=== PATIENT | female | born 2000 ===

== ENCOUNTER → 2023-03-28 09:41 | Outpatient (BNVA) | payer BC, MEDICAID, SELFPAY | PROVIDERS: Visit Provider Nurse Practitioner Women's Health | DX: K21.9 Gastro-esophageal reflux disease without esophagitis; O99.210 Obesity complicating pregnancy, unspecified trimester | CPT/HCPCS: 81000 ==

== ENCOUNTER → 2023-04-17 10:29 | Outpatient (BNVA) | payer BC, MEDICAID, SELFPAY | PROVIDERS: Visit Provider Obstetrics & Gynecology | DX: Z34.90 Encounter for supervision of normal pregnancy, unspecified, unspecified trimester (principal); Z3A.09 9 weeks gestation of pregnancy | CPT/HCPCS: 76801 ==

== ENCOUNTER → 2023-04-27 15:23 | Outpatient (BNVA) | payer BC, MEDICAID, SELFPAY | PROVIDERS: Visit Provider Obstetrics & Gynecology | DX: Z34.80 Encounter for supervision of other normal pregnancy, unspecified trimester (principal); Z3A.00 Weeks of gestation of pregnancy not specified | CPT/HCPCS: 80307; 84315; 85025; 86592; 86762; 86803; 86850; 86900; 87086; 87340 ==

== ENCOUNTER → 2023-05-07 14:26 | Outpatient (BNVA) | payer BC, MEDICAID, SELFPAY | PROVIDERS: Visit Provider Obstetrics & Gynecology | DX: Z34.80 Encounter for supervision of other normal pregnancy, unspecified trimester (principal); Z3A.00 Weeks of gestation of pregnancy not specified | CPT/HCPCS: 81000; 87491; 87591; 88175 ==

== ENCOUNTER → 2023-05-23 13:00 | Outpatient (BNVA) | payer BC, MEDICAID, SELFPAY | PROVIDERS: Visit Provider Obstetrics & Gynecology | DX: Z34.80 Encounter for supervision of other normal pregnancy, unspecified trimester (principal); Z3A.00 Weeks of gestation of pregnancy not specified | CPT/HCPCS: 87806 ==

== ENCOUNTER → 2023-06-06 13:25 | Outpatient (BNVA) | payer BC, MEDICAID, SELFPAY | PROVIDERS: Visit Provider Nurse Practitioner Women's Health | DX: Z34.80 Encounter for supervision of other normal pregnancy, unspecified trimester (principal); Z3A.00 Weeks of gestation of pregnancy not specified; L65.9 Nonscarring hair loss, unspecified | CPT/HCPCS: 81000; 84443 ==

== ENCOUNTER → 2023-07-04 14:22 | Outpatient (BNVA) | payer BC, MEDICAID, SELFPAY | PROVIDERS: Visit Provider Nurse Practitioner Women's Health | DX: Z34.92 Encounter for supervision of normal pregnancy, unspecified, second trimester (principal); Z3A.21 21 weeks gestation of pregnancy | CPT/HCPCS: 76805 ==

== ENCOUNTER → 2023-08-01 12:33 | Outpatient (BNVA) | payer BC, MEDICAID, SELFPAY | PROVIDERS: Visit Provider Obstetrics & Gynecology | DX: Z34.92 Encounter for supervision of normal pregnancy, unspecified, second trimester (principal); Z3A.25 25 weeks gestation of pregnancy | CPT/HCPCS: 76816; 82950; 84315; 88175 ==

== ENCOUNTER → 2023-08-27 08:11 | Outpatient (BNVA) | payer BC, MEDICAID, SELFPAY | PROVIDERS: Visit Provider Obstetrics & Gynecology | DX: Z34.80 Encounter for supervision of other normal pregnancy, unspecified trimester (principal); Z3A.00 Weeks of gestation of pregnancy not specified | CPT/HCPCS: 84315; 85025 ==

== ENCOUNTER 2023-09-25 08:53 | Outpatient (CLI) | payer BC, MEDICAID, SELFPAY ==
[2023-09-25 09:00] VITALS: BMI 24.4
[2023-09-25 09:08] VITALS: BP 138/75; PULSE 103
[2023-09-25 09:26] VITALS: BP 121/75; PULSE 94
[2023-09-25 09:41] VITALS: BP 124/79; PULSE 97
[2023-09-25 09:54] LABS: Actim Prom Negative
[2023-09-25 09:56] VITALS: BP 121/77; PULSE 90
[2023-09-25 10:11] VITALS: BP 118/77; PULSE 92
[2023-09-25 10:20] VITALS: BP 118/77; PULSE 92
== END 2023-09-25 10:20 | disposition home or self-care (01) ==
LOC: OPOB 09:04 → OBGYN 09:05
PROVIDERS: Visit Provider Obstetrics & Gynecology
DX: O26.899 Other specified pregnancy related conditions, unspecified trimester (principal); Z3A.00 Weeks of gestation of pregnancy not specified
CPT/HCPCS: 59025; 84112; 99211

== ENCOUNTER → 2023-10-22 09:52 | Outpatient (BNVA) | payer BC, MEDICAID, SELFPAY | PROVIDERS: Visit Provider Obstetrics & Gynecology | DX: Z34.80 Encounter for supervision of other normal pregnancy, unspecified trimester (principal) | CPT/HCPCS: 84315; 87081 ==

== ENCOUNTER → 2023-10-25 14:13 | Outpatient (BNVA) | payer BC, MEDICAID, SELFPAY | PROVIDERS: Visit Provider Obstetrics & Gynecology | DX: O26.13 Low weight gain in pregnancy, third trimester (principal); Z3A.00 Weeks of gestation of pregnancy not specified | CPT/HCPCS: 76816 ==

== ENCOUNTER → 2023-11-19 12:37 | Outpatient (BNVA) | payer BC, MEDICAID, SELFPAY | PROVIDERS: Visit Provider Obstetrics & Gynecology | DX: Z34.80 Encounter for supervision of other normal pregnancy, unspecified trimester (principal); Z3A.00 Weeks of gestation of pregnancy not specified | CPT/HCPCS: 76819; 84315 ==

== ENCOUNTER 2023-11-20 00:04 | Inpatient (IN) | payer BC, MEDICAID, SELFPAY ==
[2023-11-19] VITALS (17 sets, daily range): BP systolic 130–149; BP diastolic 75–99; PULSE 82–100; RESP 22; TEMP 36.9; BMI 44.1
[2023-11-19 19:37] LABS: Basophils % 0.4 %; Eosinophils % 0.4 %; Hematocrit 33.4 % (36-47); Lymphocytes # 1.9 10^3/uL (0.8-4.8); Lymphocytes % 16.7 %; Mean Corpuscular Hemoglobin 27.3 pg (27-33); Mean Corpuscular Volume 85.2 fl (85-98); Mean Platelet Volume 14.2 fL (7.4-10.4); Monocytes # 0.7 10^3/uL (0.2-0.9); Neutrophils # 8.55 10^3/uL (1.8-7.7); Nucleated Red Blood Cells % 0 %; Platelet Count 151 10^3/cmm (157-399); Red Blood Count 3.92 10^6/uL (3.85-5.65); Red Cell Distribution Width 14.2 % (12.1-15.1); White Blood Count 11.25 10^3/uL (3.29-11.43)
[2023-11-19 19:53] LABS: Alanine Aminotransferase 11 U/L (0-33); Albumin Level 3.5 g/dL (3.5-5.2); Alkaline Phosphatase 207 U/L (35-105); Aspartate Amino Transferase 18 U/L (0-32); Blood Urea Nitrogen 10 mg/dL (6-20); Calcium 8.3 mg/dL (8.5-10.5); Carbon Dioxide 17 mmol/L (22-29); Chloride 103 mmol/L (98-107); Glomerular Filtration Rate 150.3 mL/min (90-130); Glucose 82 mg/dL (65-115); Osmolality Calculated 274 mOsm/kg (285-295); Sodium 133 mmol/L (136-145); Total Bilirubin 0.2 mg/dL (0.15-1.2); Total Protein 6.5 g/dL (6.6-8.7); Uric Acid 7.1 mg/dL (2.4-5.7)
[2023-11-19 20:03] LABS: Urine Creatinine 53 mg/dL (28-217)
[2023-11-19 20:04] LABS: UPRO/UCREAT Ratio 1.57 mg/mg CR; Urine Protein Random 83 mg/dL
[2023-11-19 20:13] LABS: Urine Color Yellow (Yellow)
[2023-11-19 20:14] LABS: Add Urine Microscopic? YES; Bacteria Urine 1+ /hpf; Bilirubin Urine Neg (Negative); Blood Urine Neg (Negative); Glucose Urine UA Norm (Normal); Ketones Urine Negative (Negative); Leukocyte Esterase Urine Negative (Negative); Nitrate Urine Negative (Negative); Protein Urine 1+ (Negative); Specific Gravity, Urine 1.005 (1.005-1.030); Squamous Epithelial Cell Urine 0-4 /hpf (0-5); Urine Appearance Clear (CLEAR); Urobilinogen Urine Norm (Negative); pH Urine 7 (5-7)
[2023-11-19 20:15] LABS: Add Urine Culture? No; RBC Urine 0-4 /hpf (0-2)
[2023-11-19] MEDS: dextrose 5%-lactated ringers 1,000 ML 75 ML IV (20:50)
[2023-11-19] MEDS: magnesium sulfate premix 4 GM/100 ML PREMIX IV (20:59)
[2023-11-19] MEDS: oxytocin 30 UNIT/500 ML BAG IV (21:15)
[2023-11-19] MEDS: magnesium sulfate premix 20 GM/500 ML BAG IV (21:28)
[2023-11-20] VITALS (58 sets, daily range): BP systolic 104–154; BP diastolic 50–102; PULSE 90–134; RESP 16–20; TEMP 36.2–37.1; O2SAT 91–98
[2023-11-20] MEDS: acetaminophen 325 mg Tablet 650 MG PO ×2 (02:16→08:45)
[2023-11-20 03:09] LABS: Magnesium Level (OB Only) 0.2 mg/dL (5.0-7.5)
--- NOTE | 2023-11-20 06:56 | PM.OPHPUD ---
Labor & Delivery H&P Update Date of Procedure: November 20, 2023 Date H&P Performed: 11/19/23 H&P update information: I have reviewed H&P completed within last 30 days, I have examined patient prior to procedure and No changes to prior documentation Admission Diagnosis:
[2023-11-20] MEDS: magnesium sulfate premix 20 GM/500 ML BAG IV (07:06)
[2023-11-20] MEDS: lactated ringers 1,000 ML 999 ML IV (07:19)
[2023-11-20] MEDS: ROPivacaine syringe 100 MG/50 ML SYRINGE 10 MG EPIDURAL (08:20)
--- NOTE | 2023-11-20 08:38 | P.ANESASSM_ITS ---
Pre-Anesthetic Assessment Height/Weight: Height 1.68 m Weight 123.972 kg Temp Pulse Resp BP Pulse Ox O2 Del Method 97.2 F L 123 H 18 117/68 98 Room Air 11/20/23 08:25 11/20/23 08:35 11/20/23 04:27 11/20/23 08:35 11/20/23 08:33 11/20/23 04:27 epidural Familial anesthetic complications: noen Was Beta Lissa taken within 24 hours: N/A Was Clonidine taken within 24 hours: N/A Social No alcohol and No tobacco Exam alert, oriented x 3, clear to auscultation bilaterally and regular rate & rhythm CV/HEM Hypertension Metabolic Morbid Obesity Anesthetic Plan ASA status: 2 Anesthesia: Regional (specify below) Risk of > 500 ml blood loss (7ml/kg in children): Yes, adequate IV access and fluids planned Medications/Allergies Home Medications Medication Instructions Recorded Confirmed Last Taken Type vits no.126-ferrous fum 1 tab PO DAILY 03/28/23 11/19/23 Unknown History 28 mg iron-folic acid 800 mcg tablet (Classic ) Allergies Allergy/AdvReac Type Severity Reaction Status Date / Time No Known Allergies Allergy Verified 11/19/23 19:48 Current Medications Generic Name Dose Route Start Last Admin Trade Name Freq PRN Reason Stop Dose Admin Acetaminophen 650 mg 11/19/23 18:59 11/20/23 02:16 Acetaminophen 325 Mg Tablet PO 650 mg Q6H PRN Administration Mild pain or temp > 100.4 Magnesium Sulfate 20 gm in 500 mls @ 50 mls/hr 11/19/23 20:30 11/20/23 07:06 Magnesium Sulfate Premix IV 50 mls/hr .Q10H NATHANIEL Administration Dextrose/Lactated Ringer's 1,000 mls @ 125 mls/hr 11/19/23 20:30 11/20/23 07:07 Dextrose 5%-Lactated Ringers IV 50 mls/hr .Q8H NATHANIEL Infusion Oxytocin 30 unit in 500 mls @ 1 mls/hr 11/19/23 20:30 11/20/23 05:45 Pitocin IV 16 milliunit/min .Q24H NATHANIEL 16 mls/hr Titration Protocol 1 MILLIUNIT/MIN Lactated Ringer's 1,000 mls @ 999 mls/hr 11/20/23 07:16 11/20/23 07:19 Lactated Ringers IV 999 mls/hr .Q1H1M PRN Administration See label comments PFSH Anesthesia Medical History No pertinent past medical history neghx: dm, htn, thyroid, dvt/pe PCP: Dr. Acosta Surgical History No pertinent past surgical history Family History Denies family history of Colon cancer Ovarian cancer Diabetes Hyperlipidemia Breast cancer Hypertension Uterine cancer Stroke Female Reproductive History : 2 Data Anesthesia 11/19/23 19:20 11/19/23 19:20 Short CBC 11/19/23 Range/Units 19:20 WBC 11.25 (3.29-11.43) 10^3/uL Hgb 10.70 L (11.27-16.99) g/dL Hct 33.4 L (36-47) % MCV 85.2 (85-98) fl Plt Count 151 L (157-399) 10^3/cmm Neut % (Auto) 76.0 % Neut # (Auto) 8.55 H (1.8-7.7) 10^3/uL BMP 11/19/23 19:20 Sodium 133 L Potassium 4.0 Chloride 103 Carbon Dioxide 17 L BUN 10 Creatinine 0.5 Glucose 82 Calcium 8.3 L Liver Function 11/19/23 Range/Units 19:20 Total Bilirubin 0.2 (0.15-1.2) mg/dL AST 18 (0-32) U/L ALT 11 (0-33) U/L Alkaline Phosphatase 207 H (35-105) U/L Albumin 3.5 (3.5-5.2) g/dL Urine 11/19/23 Range/Units 19:27 Urine Color Yellow (Yellow) Urine Appearance Clear (CLEAR) Urine pH 7 (5-7) Ur Specific [place] 1.005 (1.005-1.030) Urine Protein 1+ H (Negative) Urine Glucose (UA) Norm (Normal) Urine Ketones Negative (Negative) Urine Nitrate Negative (Negative) Urine Bilirubin Neg (Negative) Ur Leukocyte Esterase Negative (Negative) Urine RBC 0-4 H (0-2) /hpf Urine WBC 5-10 H (0-5) /hpf Blood Bank 11/19/23 19:20 Blood Type O Positive Rho(D) Type Rh positive Antibody Screen Negative Cardiac Studies: 2 No Data to Display Anesthesia Procedures Epidural Time Out Performed: Yes Consents Signed: Procedure Consent Consent: requested by attending/covering physician, from patient and risks and benefits reviewed Lumbar Level: L3-L4 Epidural position: sitting Epidural procedure: sterile prep of area, 1% lidocaine to numb the area, 18 g needle, negative for paresthesia passed, neg for paresthesia, test dose given, 1.5% xylocaine 1:200k epi (5), 0.2% Ropivacaine bolus ml (5), placed PCEA, no systemic response, sterile dressing applied, L.U.D. no apparent complications and 0.2% Ropiavacaine @ mls/hr (10)
--- NOTE | 2023-11-20 09:07 | PM.PN ---
Subjective Subjective: Mrs. Nogueira with anatomy gestational age of 40 weeks +2 days. Admitted for induction due to preeclampsia. Refers doing better after she got the epidural. Accounts Receivable Coordinator with the patient and serves as an certified orthoptist. Vitals/I&O/Wt Last Vital Signs Temp 97.2 F L 11/20/23 08:25 Pulse 115 H 11/20/23 08:53 Resp 18 11/20/23 04:27 BP 118/64 11/20/23 08:53 Pulse Ox 98 11/20/23 08:33 O2 Del Method Room Air 11/20/23 04:27 11/19/23 11/20/23 11/20/23 22:59 06:59 14:59 Intake Total 103.367 / 103.367 62.099 / 429.350 2633.90 / 2077.90 Output Total 50 / 50 590 / 640 Balance 53.367 / 53.367 -527.901 / -965.381 1995.90 / 2077.90 Weight last 48 hrs Weight 123.972 kg Physical Exam Narrative: GA: Alert and oriented ?3. Lungs: Clear to auscultation bilaterally. Heart: Regular rhythm and rate. Abdomen: Gravid, full the height equals dates, nontender. COMMERCIAL LINES ACCOUNT EXECUTIVE: SVE; dilation: 6 cm, effacement: 18%, station: -4, presentation: Cephalic, membranes: AROM. Extremities: no edema, no cyanosis, no calves pain. heart tracing: Basal rate: 140's bpm, Variability: moderate, Accelerations: present, Decelerations: absent, Contraction: q5min. Urinary Catheter Management: Marques: Cath Placed During This Visit: yes Reason for Continuing Indwelling Catheter: Accurate Measurement of Urinary Output in Critically Ill Patients Urinary Catheter Date of Insertion: 11/19/23 Urinary Catheter Time of Insertion: 21:30 Data 11/19/23 19:20 11/19/23 19:20 A&P Assessment and plan (1) Pre-eclampsia in third trimester: Mrs. Nogueira with anatomy gestational age of 40 weeks +2 days. Admitted for induction due to preeclampsia. heart tracing category 1. Good scalp stimulation. AROM with scant fluid. Plan Anticipate vaginal delivery Continue with continuous monitoring Continue with oxytocin Attestations Medical Necessity Statement*: In my professional opinion poor admitting diagnosis Coding Level of Care Code Acute Code for Chg Fwd Diagnoses Pre-eclampsia in third trimester O14.93
[2023-11-20] MEDS: dextrose 5%-lactated ringers 1,000 ML 50 ML IV (09:24)
[2023-11-20 10:21] LABS: Magnesium Level (OB Only) 4.6 mg/dL (5.0-7.5)
--- NOTE | 2023-11-20 10:28 | PC.NURSE ---
Dr. Sidhu on unit at 0840 and gave orders not to call with magnesium level unless its greater than 8.
[2023-11-20] MEDS: ROPivacaine syringe 100 MG/50 ML SYRINGE 13 MG EPIDURAL (11:46)
[2023-11-20] MEDS: lidocaine 2% INJ 20 mL INJECTION (12:20)
--- NOTE | 2023-11-20 12:52 | P.PCNOB_ITS ---
Delivery Note: Date of delivery: November 20, 2023 Pre-delivery diagnoses: Term Preeclampsia Post-delivery diagnoses: Same Term delivered Procedure: A spontaneous vaginal delivery. Delivering Physician: Hero Sidhu MD Estimated blood loss (mL): 300 Delivery: The patient is a _ year old G_P_ admitted at 40+2 weeks gestation admitted for induction due to preeclampsia. Oxytocin was given for labor augmentation as she had a slow progression. She progressed to had a spontaneous vaginal delivery. The patient was noted to be complete and pushing, so was placed in the dorsal lithotomy position, prepped and draped in the usual sterile fashion for a vaginal delivery. Pt. Noted to have epidural anesthesia. At 1212 the patient delivered a viable 40 weeks 2 days male infant weighing 3890 g with scores of 8 and 9 at one and five minutes, respectively. The vertex was delivered spontaneously over intact perineum. The patient was asked to push and the head delivered spontaneously in the DHEERAJ position, over an intact perineum. A nuchal cord was checked and 1 noted, and relieve around the head as necessary. The anterior shoulder delivered easily and the posterior shoulder followed. The remainder of the infant was easily delivered and the oropharynx and nasopharynx was bulb suctioned. The was noted to have spontaneous cry and spontaneous movement of all four extremities. The cord was clamped x 2 and cut and noted to have 2 arteries and one vein. The infant was passed to the mother's abdomen where nursing personnel were in attendance. Cord blood sample was then obtain ed. The placenta delivered intact spontaneously and the uterus was explored. 20 units of Pitocin was placed in the IV bag to firm the uterus. Examination of the cervix and vaginal vault did not reveal any lacerations. A vaginal pack was then placed. Examination of the perineum showed a second-degree laceration. The laceration was repaired with 2-0 Vicryl and 3-0 Vicryl in the normal fashion in a running non locking fashion to reapproximate the laceration in layers. The vaginal pack was then removed. The patient tolerated this procedure well, and recovered in L&D with her in their LDR room. All sponge and needle counts were correct. History History History 2 Term 1 0 Miscarriages/Ectopic 0 Living Children 1 Coding Level of Care Code Acute Code for Chg Fwd
--- NOTE | 2023-11-20 13:30 | PC.NURSE ---
Pt educated that Dr. Sidhu recommends continuing magnesium sulfate therapy for 24 hours after delivery to prevent seizures related to pre-eclampisa. Educated pt that she would still be on bedrest and would be NPO and need a high catheter. Pt requests to have the magnesium discontinued.
[2023-11-20] MEDS: HYDROcodone-acetaminophen 5-325 mg Tablet PO (20:19)
[2023-11-21 00:57] LABS: Hematocrit 26.2 % (36-47); Mean Corpuscular HGB Conc 31.7 g/dL (30-55); Mean Corpuscular Hemoglobin 27.4 pg (27-33); Mean Corpuscular Volume 86.5 fl (85-98); Mean Platelet Volume 13.5 fL (7.4-10.4); Platelet Count 145 10^3/cmm (157-399); Red Blood Count 3.03 10^6/uL (3.85-5.65); Red Cell Distribution Width 14.6 % (12.1-15.1); White Blood Count 11.98 10^3/uL (3.29-11.43)
[2023-11-21] MEDS: HYDROcodone-acetaminophen 5-325 mg Tablet PO (02:23)
[2023-11-21 02:33] VITALS: BP 132/86; PULSE 94; RESP 16
[2023-11-21 06:33] VITALS: BP 122/87; PULSE 102; RESP 16; TEMP 36.7; O2SAT 99
--- NOTE | 2023-11-21 08:00 | ANE.PACU2 ---
Inpatient post-anesthesia follow up: Airway intact: Yes Vital signs: Temperature 98.1 F Pulse Rate 89 Respiratory Rate 18 Blood Pressure 134/85 Pulse Oximetry 98 Oxygen Delivery Me thod Room Air Oxygen Flow Rate Fraction of Inspir ed Oxygen Hydration adequate: Yes Nausea and vomiting: No Pain level: 1 Mental status: Baseline Epidural Start/End: Epidural Start Date: 11/20/23 Epidural Start Time: 08:04 Epidural End Date: 11/20/23 Epidural End Time: 14:00
[2023-11-21] MEDS: ibuprofen 800 mg tablet PO (09:22)
[2023-11-21 09:37] VITALS: BP 127/86; PULSE 92; RESP 16; TEMP 37; O2SAT 98
--- NOTE | 2023-11-21 14:43 | P.DS_ITS ---
Discharge Providers PLAYGROUND EQUIPMENT ERECTOR Date of Admission: 11/20/23 00:04 Date of Discharge: 11/21/23 Attending Provider at Admission: Hero Sidhu MD Attending Provider at Discharge: Hero Sidhu MD Primary PLAYGROUND EQUIPMENT ERECTOR: Hero Sidhu MD Primary Care Provider: Anjum Acosta MD Diagnoses at Discharge Discharge Diagnosis (1) Pre-eclampsia in third trimester: Status: Acute Reason for Visit Reason for Visit: IOL Hospital Course Hospital Course Mrs. Nogueira 23-year-old female with term admitted for induction due to preeclampsia. She had a slow progression of labor and oxytocin was given for augmentation. She progressed to have a spontaneous vaginal delivery without complication. observation was uneventful except patient declining magnesium sulfate for seizure prophylaxis. She is afebrile hemodynamically stable day 1. Tolerating diet well. Ambulating without difficulty. She was counseled regarding pelvic rest for 6 weeks (no sex, no tampons, no vaginal douches). Return to the emergency room if any fever, increased bleeding or pain. Information Peripartum Data: Infant Delivery Method: Vaginal Physical Exam Narrative: GA; alert and oriented x 3 HEENT: normal Breasts: engorged Nipples - skin intact Lungs; clear to auscultation Heart: regular rhythm, no murmurs. Abd: Appropriately tender. BS+. Uterine fundus below umbilicus. No Fundal Tenderness. Perineum: normal lochia. Extremities: no edema, no cyanosis, no tenderness. Urinary Catheter Management: Marques: Cath Placed During This Visit: yes Reason for Continuing Indwelling Catheter: Accurate Measurement of Urinary Output in Critically Ill Patients Urinary Catheter Date of Insertion: 11/19/23 Urinary Catheter Time of Insertion: 21:30 History History History 2 Term 1 0 Miscarriages/Ectopic 0 Living Children 1 Discharge Data Studies Completed and Pending Laboratory Results WBC 11.98 10^3/uL (3.29-11.43) H 11/21/23 00:51 RBC 3.03 10^6/uL (3.85-5.65) L 11/21/23 00:51 Hgb 8.30 g/dL (11.27-16.99) L 11/21/23 00:51 Hct 26.2 % (36-47) L 11/21/23 00:51 MCV 86.5 fl (85-98) 11/21/23 00:51 MCH 27.4 pg (27-33) 11/21/23 00:51 MCHC 31.7 g/dL (30-55) 11/21/23 00:51 RDW 14.6 % (12.1-15.1) 11/21/23 00:51 Plt Count 145 10^3/cmm (157-399) L 11/21/23 00:51 MPV 13.5 fL (7.4-10.4) H 11/21/23 00:51 Neut % (Auto) 76.0 % 11/19/23 19:20 Lymph % (Auto) 16.7 % 11/19/23 19:20 [place] % (Auto) 6.0 % 11/19/23 19:20 Eos % (Auto) 0.4 % 11/19/23 19:20 Baso % (Auto) 0.4 % 11/19/23 19:20 Neut # (Auto) 8.55 10^3/uL (1.8-7.7) H 11/19/23 19:20 Lymph # (Auto) 1.9 10^3/uL (0.8-4.8) 11/19/23 19:20 [place] # (Auto) 0.7 10^3/uL (0.2-0.9) 11/19/23 19:20 Eos # (Auto) 0.0 10^3/uL (0.0-0.8) 11/19/23 19:20 Baso # (Auto) 0.0 10^3/uL (0.0-0.1) 11/19/23 19:20 Nucleated RBC % (auto) 0 % 11/19/23 19:20 Nucleated RBCs # 0.0 /100WBC 11/19/23 19:20 Sodium 133 mmol/L (136-145) L 11/19/23 19:20 Potassium 4.0 mmol/L (3.5-5.1) 11/19/23 19:20 Chloride 103 mmol/L (98-107) 11/19/23 19:20 Carbon Dioxide 17 mmol/L (22-29) L 11/19/23 19:20 Anion Gap 17.0 (5-19) 11/19/23 19:20 BUN 10 mg/dL (6-20) 11/19/23 19:20 Creatinine 0.5 mg/dL (0.5-0.9) 11/19/23 19:20 GFR Calculation 150.3 mL/min (90-130) H 11/19/23 19:20 Glucose 82 mg/dL (65-115) 11/19/23 19:20 Calculated Osmolality 274 mOsm/kg (285-295) L 11/19/23 19:20 Uric Acid 7.1 mg/dL (2.4-5.7) H 11/19/23 19:20 Calcium 8.3 mg/dL (8.5-10.5) L 11/19/23 19:20 Magnesium 4.6 mg/dL (5.0-7.5) L* 11/20/23 09:00 Total Bilirubin 0.2 mg/dL (0.15-1.2) 11/19/23 19:20 AST 18 U/L (0-32) 11/19/23 19:20 ALT 11 U/L (0-33) 11/19/23 19:20 Alkaline Phosphatase 207 U/L (35-105) H 11/19/23 19:20 Total Protein 6.5 g/dL (6.6-8.7) L 11/19/23 19:20 Albumin 3.5 g/dL (3.5-5.2) 11/19/23 19:20 Globulin 3.0 g/dL (1.3-4.6) 11/19/23 19:20 Urine Color Yellow (Yellow) 11/19/23 19:27 Urine Appearance Clear (CLEAR) 11/19/23 19:27 Urine pH 7 (5-7) 11/19/23 19:27 Ur Specific [place] 1.005 (1.005-1.030) 11/19/23 19:27 Urine Protein 1+ (Negative) H 11/19/23 19:27 Urine Glucose (UA) Norm (Normal) 11/19/23 19:27 Urine Ketones Negative (Negative) 11/19/23 19:27 Urine Blood Neg (Negative) 11/19/23 19:27 Urine Nitrate Negative (Negative) 11/19/23 19:27 Urine Bilirubin Neg (Negative) 11/19/23 19:27 Urine Urobilinogen Norm mg/dL (Negative) 11/19/23 19:27 Ur Leukocyte Esterase Negative (Negative) 11/19/23 19:27 Urine RBC 0-4 /hpf (0-2) H 11/19/23 19:27 Urine WBC 5-10 /hpf (0-5) H 11/19/23 19:27 Ur Squamous Epith Cells 0-4 /hpf (0-5) H 11/19/23 19:27 Amorphous Sediment Not Reportable 11/19/23 19:27 Urine Bacteria 1+ /hpf (NONE) H 11/19/23 19:27 U Random Total Protein 83 mg/dL 11/19/23 19:27 Urine Creatinine 53 mg/dL (28-217) 11/19/23 19:27 Protein/Creatinin Ratio 1.57 mg/mg CR 11/19/23 19:27 Blood Type O Positive 11/19/23 19:20 Rho(D) Type Rh positive 11/19/23 19:20 Antibody Screen Negative 11/19/23 19:20 Vitals Last Vital Signs Temp 98.6 F 11/21/23 09:37 Pulse 92 11/21/23 09:37 Resp 16 11/21/23 09:37 BP 127/86 11/21/23 09:37 Pulse Ox 98 11/21/23 09:37 O2 Del Method Room Air 11/21/23 09:37 Results Labs OB ([facility]): Obstetrics US 10/25/23 Obstetrics US/Biophysical Profile Blood Type O Positive 11/19/23 Antibody Screen Negative 11/19/23 Hct 26.2 % (36-47) L 11/21/23 Hgb 8.30 g/dL (11.27-16.99) L 11/21/23 Rho(D) Type Rh positive 11/19/23 Plt Count 145 10^3/cmm (157-399) L 11/21/23 Hep Bs Antigen Non-reactive (Nonreactive) 04/27/23 Hepatitis C Antibody Non-reactive (Nonreactive) 04/27/23 Rubella IgG Antibody 32.3 IU/mL (0.0-10.0) H 04/27/23 RPR Nonreactive (Nonreactive) 04/27/23 HIV 1&2 Ab & HIV 1 Ag Non-reactive (Non-Reactiv) 05/23/23 TSH 0.69 uIU/mL (0.27-4.20) 06/06/23 C.trachomatis RNA (TMA) Not detected (NOT DETECTED) N.gonorrhoeae RNA (TMA) Not detected (NOT DETECTED) T. vaginalis Amp RNA Not detected (NOT DETECTED) 05/07/23 Chlamydia/GC Comment See note 05/07/23 Glucose 1 Hr 50 gm 119 mg/dL (85-140) 08/01/23 Uric Acid 7.1 mg/dL (2.4-5.7) H 11/19/23 Urine Opiates Screen Negative ng/mL (Negative) 04/27/23 Ur Barbiturates Screen Negative ng/mL (Negative) 04/27/23 Ur Phencyclidine Scrn Negative ng/mL (Negative) 04/27/23 Ur Amphetamines Screen Negative ng/mL (Negative) 04/27/23 U Benzodiazepines Scrn Negative ng/mL (Negative) 04/27/23 Urine Cocaine Screen Negative ng/mL (Negative) 04/27/23 U Marijuana (THC) Screen Negative ng/mL (Negative) 04/27/23 Micro Urine Specimen 04/27/23 Pap Smear Interpret See note 08/01/23 Discharge Plan Discharge Patient Disposition: Home Condition: Stable Prescriptions: New acetaminophen 325 mg capsule 325 mg PO Q4H PRN (Reason: fever or pain) Qty: 60 0RF docusate sodium [Colace] 100 mg capsule 100 mg PO BID Qty: 60 0RF ferrous sulfate [Iron (ferrous sulfate)] 325 mg (65 mg iron) tablet 325 mg PO BID Qty: 60 0RF ibuprofen 800 mg tablet 800 mg PO TID PRN (Reason: pain) Qty: 60 0RF Continued Classic 28 mg iron- 800 mcg tablet 1 tab PO DAILY Discharge Orders: Discharge Order (Routine); Ordered 11/21/23 Ordered By: Hero Sidhu Referrals: Hero Sidhu MD [Physician] - 6 Weeks Discharge Diet: Usual diet Discharge Activity: Limit activity as instructed Patient Instructions: Depression (DC), Opioid Safety (DC), Preeclampsia and Eclampsia After Delivery (GEN), Hemorrhage (DC), OB Discharge Report, OB Food/Drug Interaction Guide, Opioid Safety, OB Home Care, OB Vaginal Deliveries - [facility], Abnormal Bleeding Activity Restrictions/Additional Instructions: 1. Please call [facility] on next working day to make your appointment in 6 weeks. 2. Please stay home until you come back to the clinic on first post- hospatilization check up. 3. Please follow instructions on your medications CAREFULLY. 4. If you have abdominal incision, do not cover it unless dressing is necessary because of drainage. OK to shower, but avoid bath. Leave steri-strips until they fall off. If they are still on one week after surgery, you may remove them. 5. If you had vaginal surgery or vaginal repair, Dr. Sidhu may instruct you to take SITZ bath. 6. Yellow, blood tinged odorous vaginal discharge is usually normal after hysterectomy or vaginal surgeries. 7. No SEXUAL INTERCOURSE, tampons, or douches until you are completely released from the post-operative care. 8. Avoid constipation by eating right and maybe using some Metamucil or Milk of Magnesia. 9. All prescription refills are given during the working hours. Please do no wait till it runs out. Call the clinic at [phone] before your medication runs out. The clinic will get in touch with your doctor to prescribe medications if necessary. 10. Please remain within 40 mile radius from our hospital because emergencies do happen now and then during the post-operative period. 11. If you have stairs at home, take one step at a time slowly and minimize the number of trips. It helps to stay in one floor for the next few days. No lifting except what you can lift by one hand until you are released from the post-operative care. 12. Driving is discouraged until you are well healed. It may be 3-4 weeks before you feel strong enough to drive. You should be able to turn and look through the rear window without pain and you should be able to push the brake pedal very hard without pain before you drive. No fast rules, but SAFETY should be your primary concern. DO NOT drive if you are on sedating medications such as narcotics. 13. Call the clinic (during working hours) to make urgent appointment or go to the Emergency room, if any of the following occurs: i. Vaginal bleeding becomes heavy, more than a period. ii. Incision becomes red and sore, or drains pus. iii. Your TEMPERATURE is over 100.4F or you have chill. iv. IV site becomes red and swollen (a little ``knot?? is usually OK) v. Persistent nausea and vomiting vi. Persistent constipation or diarrhea vii. Rash or allergic reaction to medications. Discharge Attestations PLAYGROUND EQUIPMENT ERECTOR Time Spent in Discharge Care*: greater than 30 min Coding Level of Care Code Acute Code for Chg Fwd Diagnoses Pre-eclampsia in third trimester O14.93
[2023-11-21 18:00] VITALS: BP 134/85; PULSE 89; RESP 18; TEMP 36.7; O2SAT 98
== END 2023-11-21 18:10 | disposition home or self-care (01) | DRG 807 ==
PROVIDERS: Admitting Provider Obstetrics & Gynecology; PCP Family Medicine; Visit Provider Obstetrics & Gynecology
DX: O14.94 Unspecified pre-eclampsia, complicating childbirth (principal); Z37.0 Single live birth; Z3A.40 40 weeks gestation of pregnancy; O48.0 Post-term pregnancy; O69.81X0 Labor and delivery complicated by cord around neck, without compression, not applicable or unspecified; O70.1 Second degree perineal laceration during delivery
CPT/HCPCS: 36415; 51702; 59409; 80053; 81001; 82570; 83735; 84156; 84550; 85025; 85027; 86850; 86900; 99211; J2590; J2795; J3475; J7120; J7121